=== PATIENT | male | born 1955 | race Hispanic/Latino ===

== ENCOUNTER 2023-06-12 08:58 | Emergency (ER) | payer OTHER ==
[~2023-06-12] VITALS: Ht 167.6 cm; Wt 77.1 kg
[2023-06-12] MEDS ORDERED: CEFAZOLIN SODIUM 2 GM VIAL IVPB STA (09:09)
[2023-06-12] MEDS ORDERED: ONDANSETRON 4MG INJ IVP ONE (09:30)
[2023-06-12] MEDS ORDERED: MORPHINE 4 MG SYG IVP ONE (09:30)
[2023-06-12] MEDS ORDERED: TETANUS/DIPHTHERIA TOXOID [ADULT] 0.5 ML VIAL IM ONE (09:30)
[2023-06-12] MEDS ORDERED: LIDOCAINE 1%-EPI 1:100,000 20 ML VIAL ONE (10:20)
[2023-06-12 10:57] VITALS: BP 173/100; PULSE 73; O2SAT 98
[2023-06-12] MEDS ORDERED: LIDOCAINE 1%-EPI 1:100,000 20 ML VIAL IJ ONE (11:00)
[2023-06-12] MEDS ORDERED: CEPH500B PO (11:02)
== END 2023-06-12 11:16 | disposition home or self-care (01) ==
LOC: EDH 08:58
DX: S01.511A Laceration without foreign body of lip, initial encounter (principal); S01.21XA Laceration without foreign body of nose, initial encounter; I10 Essential (primary) hypertension; X58.XXXA Exposure to other specified factors, initial encounter; Y93.89 Activity, other specified; Y92.89 Other specified places as the place of occurrence of the external cause; Y99.8 Other external cause status
CPT/HCPCS: 99285; 70450; 96365; 96375; 12013; 90714; 72125; 70486; 90471; J3490; J2405; J2270; J0690